=== PATIENT | female | born 1995 | race Caucasian/White ===

== ENCOUNTER 2023-08-10 11:13 | Outpatient (CLI) | payer OTHER, SELFPAY ==
[2023-08-10 22:41] LABS: Bacterial Vaginosis* NEGATIVE (No Detected); Candida glab/krus NOT DETECTED (No Detected); Candida species NOT DETECTED (No Detected); Trichomonas vaginalis NOT DETECTED (No Detected)
== END 2023-08-10 11:14 | disposition home or self-care (01) ==
PROVIDERS: PCP Family Medicine; Visit Provider Obstetrics & Gynecology
DX: N94.819 Vulvodynia, unspecified (principal); R35.0 Frequency of micturition
CPT/HCPCS: 81513; 82671; 84144; 84443; 87086; 87481; 87661

== ENCOUNTER 2023-09-21 10:25 | Outpatient (CLI) | payer OTHER, SELFPAY | END 2023-09-21 10:26 | disposition home or self-care (01) | LOC: FRMREF 10:26 | PROVIDERS: PCP Family Medicine; Visit Provider Obstetrics & Gynecology | DX: R30.0 Dysuria (principal) | CPT/HCPCS: 87086 ==

== ENCOUNTER 2023-10-28 11:30 | Outpatient (CLI) | payer OTHER, SELFPAY | END 2023-10-28 11:31 | disposition home or self-care (01) | LOC: LKVREF 12:19 | PROVIDERS: PCP Family Medicine; Referring Provider Family Medicine; Visit Provider Obstetrics & Gynecology | DX: N89.8 Other specified noninflammatory disorders of vagina (principal) | CPT/HCPCS: 87086 ==

== ENCOUNTER 2023-11-16 08:54 | Outpatient (CLI) | payer OTHER, SELFPAY | END 2023-11-16 08:55 | disposition home or self-care (01) | LOC: NFLDREF 11-17 06:05 | PROVIDERS: PCP Family Medicine; Referring Provider Family Medicine; Visit Provider Obstetrics & Gynecology | DX: R35.0 Frequency of micturition (principal); N94.819 Vulvodynia, unspecified; B37.31 Acute candidiasis of vulva and vagina | CPT/HCPCS: 87086 ==

== ENCOUNTER 2024-01-09 11:34 | Outpatient (CLI) | payer OTHER, SELFPAY | END 2024-01-09 11:35 | disposition home or self-care (01) | LOC: NFLDREF 11:35 | PROVIDERS: PCP Family Medicine; Visit Provider Obstetrics & Gynecology | DX: R30.0 Dysuria (principal) | CPT/HCPCS: 87086 ==

== ENCOUNTER 2024-03-30 10:42 | Outpatient (CLI) | payer OTHER, SELFPAY | END 2024-03-30 10:43 | disposition home or self-care (01) | LOC: NFLDREF 10:44 | PROVIDERS: PCP Family Medicine; Visit Provider Obstetrics & Gynecology | DX: R35.0 Frequency of micturition (principal); L29.2 Pruritus vulvae | CPT/HCPCS: 87086 ==

== ENCOUNTER 2024-05-09 12:05 | Outpatient (CLI) | payer OTHER, SELFPAY | END 2024-05-09 12:06 | disposition home or self-care (01) | LOC: FRMREF 12:06 | PROVIDERS: PCP Family Medicine; Visit Provider Obstetrics & Gynecology | DX: Z01.419 Encounter for gynecological examination (general) (routine) without abnormal findings (principal); R30.0 Dysuria | CPT/HCPCS: 87086 ==

== ENCOUNTER 2024-05-30 11:08 | Outpatient (CLI) | payer OTHER, SELFPAY | END 2024-05-30 11:09 | disposition home or self-care (01) | LOC: NFLDREF 05-31 08:11 | PROVIDERS: PCP Family Medicine; Referring Provider Family Medicine; Visit Provider Obstetrics & Gynecology | DX: L29.2 Pruritus vulvae (principal) | CPT/HCPCS: 87086 ==

== ENCOUNTER 2024-07-11 09:34 | Outpatient (CLI) | payer OTHER, SELFPAY ==
[2024-07-11 14:31] LABS: Bacterial Vaginosis* Negative (Negative); Candida glab/krus NOT DETECTED (No Detected); Candida species NOT DETECTED (No Detected); Trichomonas vaginalis NOT DETECTED (No Detected)
== END 2024-07-11 09:35 | disposition home or self-care (01) ==
LOC: FRMREF 09:35
PROVIDERS: PCP Family Medicine; Visit Provider Obstetrics & Gynecology
DX: L29.2 Pruritus vulvae (principal)
CPT/HCPCS: 81513; 87481; 87661

== ENCOUNTER 2024-10-17 09:49 | Outpatient (CLI) | payer OTHER, SELFPAY ==
[2024-10-17 14:54] LABS: Bacterial Vaginosis* Negative (Negative); Candida glab/krus NOT DETECTED (No Detected); Candida species NOT DETECTED (No Detected); Trichomonas vaginalis NOT DETECTED (No Detected)
== END 2024-10-17 09:50 | disposition home or self-care (01) ==
PROVIDERS: PCP Family Medicine; Visit Provider Obstetrics & Gynecology
DX: R10.2 Pelvic and perineal pain (principal); R30.0 Dysuria; R35.0 Frequency of micturition
CPT/HCPCS: 81513; 87086; 87481; 87661

== ENCOUNTER 2025-04-09 11:36 | Outpatient (CLI) | payer OTHER, SELFPAY ==
[2025-04-09 22:45] LABS: Bacterial Vaginosis* Negative (Negative); Candida glab/krus NOT DETECTED (No Detected)
== END 2025-04-09 11:37 | disposition home or self-care (01) ==
PROVIDERS: PCP Family Medicine; Visit Provider Obstetrics & Gynecology
DX: R82.90 Unspecified abnormal findings in urine (principal); N89.8 Other specified noninflammatory disorders of vagina
CPT/HCPCS: 81513; 87086; 87481; 87661